=== PATIENT | male | born 1995 | race Two or more races ===

== ENCOUNTER 2024-09-26 07:51 | Emergency (ER) | payer OTHER, SELFPAY ==
--- OUTSIDE RECORDS SUMMARY | 2024-09-26 07:52 | XMS_ITS | Clinical Summary ---
Author Organization [employer] [facility] Address [address] [place] [address] Care Team Providers Care Enterprise Systems Manager Name Role Phone Pcp, No Primary Care Provider Unavailabl e Allergies No known active allergies Social History Tobacco Use Types Packs/Day Years Used Date Smoking Tobacco: Never Assessed Alcohol Use Standard Drinks/Week Comments Not Asked 0 (1 standard drink = 0.6 oz pur e alcohol) little Sex and Gender Information Value Date Recorded Sex Assigned at Male 06/17/2023 9:31 AM REHABILITATION SUPERVISOR Legal Sex Male 9:23 AM REHABILITATION SUPERVISOR Gender Identity Not on file Sexual Orientation Not on file Obstetrics History Last Filed Vital Signs Vital Sign Reading Time Taken Comments Blood Pressure 126/81 06/21/2023 1:05 PM REHABILITATION SUPERVISOR Pulse 90 06/21/2023 1:05 PM REHABILITATION SUPERVISOR Temperature 36.8 C (98.3 F) 06/21/2023 1:05 PM REHABILITATION SUPERVISOR Respiratory Rate - - Oxygen Saturation 97% 06/21/2023 1:05 PM REHABILITATION SUPERVISOR Inhaled Oxygen Concentration - - Weight 75.3 kg (166 lb) 06/21/2023 1:05 PM REHABILITATION SUPERVISOR Height - - Body Mass Index - - Plan of Treatment Health Maintenance Due Date Last Done Comments Tdap 2005 Depression screening for age 12+ 2006 BMI (ht and wt on same day) for age 18+ 02/03/2012 Hepatitis C screening for ag e 18-79 02/03/2012 Tetanus booster 2014 COVID-19 vaccine series ( season) 2024 Influenza Vaccine (#1) 2024 HIV for age 15-65 Completed 06/21/2023 Pneumococcal series for age 6-49 Aged Out No longer eligible based on patient's age to complete this topic Procedures Procedure Name Priority Date/Time Associated Diagnosis Comments ANTI HIV 1/2 Routine 06/21/2023 2:11 PM REHABILITATION SUPERVISOR Discharge from penis without blood Routine screening for STI (sexually transmitted infection) from Last 3 Months or Most Recently Relevant to Health Maintenance Results * ANTI HIV 1/2 (06/21/2023 2:11 PM REHABILITATION SUPERVISOR) HIV-1/HIV-2 SCREEN Non-Reacti ve Non-Reacti ve 06/21/2023 7:29 PM REHABILITATION SUPERVISOR [facility] Comment:HIV-1 p24 and HIV-1/ HIV-2 Ab Not Detected. Blood BLOOD SPECIMEN / Unknown Venipuncture / Unknown 06/21/2023 2:11 PM REHABILITATION SUPERVISOR 06/21/2023 2:14 PM REHABILITATION SUPERVISOR us Ariane Villarreal DO SEND OUTS Final Resul t [facility] [address] [place] [address], [place] from Last 3 Months or Most Recently Relevant to Health Maintenance Care Teams Enterprise Systems Manager Relationship Specialty Start Date End Date Pcp, No . PCP - General 07/08/24
--- OUTSIDE RECORDS SUMMARY | 2024-09-26 07:52 | XMS_ITS | Clinical Summary ---
Author Organization [facility] Address [address] [facility] [address] Care Team Providers Care Pattern Wheel Maker Name Role Phone No Ref-Primary, Physician Primary Care Provider Allergies No known active allergies Medications No known medications Immunizations Name Administration Dates Next Due TDAP Vaccine (Adacel) 04/16/2019 Social History Tobacco Use Types Packs/Day Years Used Date Smoking Tobacco: Never Assessed Adolescent Education Answer Date Record ed Getting School Help Needed Not on file 03/22 Sex and Gender Information Value Date Recorded Sex Assigned at Not on file Legal Sex Male 9:56 PM CDT Gender Identity Not on file Sexual Orientation Not on file Last Filed Vital Signs Vital Sign Reading Time Taken Comments Blood Pressure 132/83 12/19/2022 1:16 PM CDT Pulse 89 12/19/2022 1:16 PM CDT Temperature 36.7 C (98.1 F) 12/19/2022 1:16 PM CDT Respiratory Rate 18 12/19/2022 1:16 PM CDT Oxygen Saturation 98% 12/19/2022 1:16 PM CDT Inhaled Oxygen Concentration - - Weight - - Height 180 cm (5' 10.87) 04/16/2019 10:03 PM CD T Body Mass Index - - Plan of Treatment Health Maintenance Due Date Last Done Comments ADVANCE CARE PLANNING 1994 ANNUAL REVIEW OF HM ORDERS 1994 YEARLY PREVENTIVE VISIT 1997 HIV SCREENING 2009 HEPATITIS C SCREENING 02/03/2012 HEPATITIS B IMMUNIZATION (1 of 3 - 19+ 3-dose series) 2013 COVID-19 Vaccine ( season) 2024 05/06/2022, 07/10/2021, 11/16/2020, Additional history exists INFLUENZA VACCINE (#1) 2024 05/06/2022 PHQ-2 (once per calendar year) 2024 DTAP/TDAP/TD IMMUNIZATION (2 - Td or Tdap) 04/16/2029 04/16/2019 ZOSTER IMMUNIZATION (1 of 2) 02/03/2044 HPV IMMUNIZATION Aged Out No longer e ligible based on patient's age to complete this topic MENINGITIS IMMUNIZATION Aged Out No l onger eligible based on patient's age to complete this topic Pneumococcal Vaccine: Pediatrics (0 to 5 Years) and At-Risk Patients (6 to 49 Years) Aged Out No longer eligible based on patient's age to complete this topic 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
[2024-09-26 07:55] VITALS: BP 128/85; PULSE 84; RESP 16; TEMP 37.1; O2SAT 96; BMI 24.9
--- NOTE | 2024-09-26 08:24 | ED.GENADULT ---
HPI - General Adult General Chief complaint: Laceration/Wound Stated complaint: R hand laceration Time Seen by Provider: 09/26/24 07:58 Source: patient Mode of arrival: ambulatory Limitations: no limitations History of Present Illness HPI narrative: 29-year-old male presenting today with lacerations to both hands after his hand slipped well working on a car and grazed the screw that had come loose. He states that his tetanus shot was updated 2 years ago. Related Data Home Medications ?Medication ?Instructions ?Recorded ?Confirmed No Known Home Medications 09/26/24 09/26/24 Allergies Allergy/AdvReac Type Severity Reaction Status Date / Time No Known Drug Allergies Allergy Verified 09/26/24 08:02 Review of Systems Status of ROS: Reports: 6 or more systems reviewed and unremarkable except as noted in History and below Exam Narrative: Exam Narrative: Well-nourished well-developed patient in no acute distress. Alert and oriented. Answers questions appropriately. Mood and affect are appropriate. Thoughts are goal oriented and rational. No tangential or magical thinking noted. Patient speaks in full sentences without needing to catch his breath. HEENT: Normocephalic atraumatic. Pupils are equally round reactive to light. Extraocular muscles are intact. Conjunctivae are moist without any icterus noted. Moist mucous membranes. Extremities: Patient has approximately a 1 cm laceration just proximal to the 3rd knuckle on the volar surface of the hand on the right and a slightly smaller semi circular laceration just distal to the PIP on the pointer finger on left hand. Both lacerations go through the dermis into the subcutaneous tissue but do not penetrate through the subcutaneous tissue. Const: Vital Signs, click to edit/add: Vital Signs - 24 hr 09/26/24 07:55 Temperature 98.8 F Pulse Rate [Right Pulse Oximeter] 84 Respiratory Rate 16 Blood Pressure [Le ft Upper Arm] 128/85 Pulse Oximetry 96 Oxygen Delivery Me thod Room Air Course Course ED Course: Both lacerations were anesthetized with lidocaine and wounds were irrigated and cleaned. Wounds explored. Wound on the right hand was sutured with 4-0 Ethilon, 4 sutures were placed. Wound on the left hand was sutured with 4 0 Ethilon, 3 sutures were placed. Vital Signs Vital signs: Initial Vital Signs Temperature 98.8 F 09/26/24 07:55 Temperature Source Temporal Artery Scan 09/26/24 07:55 Pulse Rate 84 09/26/24 07:55 Respiratory Rate 16 09/26/24 07:55 Blood Pressure 128/85 09/26/24 07:55 Blood Pressure Mean 99 09/26/24 07:55 Blood Pressure Position Sitting 09/26/24 07:55 Pulse Oximetry 96 09/26/24 07:55 Oxygen Delivery Method Room Air 09/26/24 07:55 Vital Signs Temperature 98.8 F 09/26/24 07:55 Pulse Rate 84 09/26/24 07:55 Respiratory Rate 16 09/26/24 07:55 Blood Pressure 128/85 09/26/24 07:55 Pulse Oximetry 96 09/26/24 07:55 Oxygen Delivery Method Room Air 09/26/24 07:55 Temperature 98.8 F 09/26/24 07:55 Pulse Rate 84 09/26/24 07:55 Respiratory Rate 16 09/26/24 07:55 Blood Pressure 128/85 09/26/24 07:55 Pulse Oximetry 96 09/26/24 07:55 Oxygen Delivery Method Room Air 09/26/24 07:55 Medical Decision Making MDM Narrative Medical decision making narrative: Lacerations treated per above. Discharge Plan Discharge Clinical Impression: Laceration Patient Disposition: Home, Self-Care Condition: Improved Additional Instructions: Keep wound clean and dry. Do not soak such as taking baths, swimming or doing dishes. Follow-up in approximately 1 week for suture removal with your primary care provider. Watch for signs and symptoms of infection including increasing redness of the area, purulent drainage, or fever. If this occurs follow-up right away with your doctor or return to the ER. Prescriptions: No Action No Known Home Medications Follow Up/Referrals: Provider,Not a Local [Primary Care Provider] - Stand Alone Forms: [employer] Info Instructions
--- OUTSIDE RECORDS SUMMARY | 2024-09-26 08:32 | XMS_ITS | Clinical Summary ---
Author Organization [employer] [facility] Address [address] [place] [id number] Care Team Providers Care Passenger Service Supervisor Name Role Phone Pcp, No Primary Care Provider Unavailabl e Allergies No known active allergies Social History Tobacco Use Types Packs/Day Years Used Date Smoking Tobacco: Never Assessed Alcohol Use Standard Drinks/Week Comments Not Asked 0 (1 standard drink = 0.6 oz pur e alcohol) little Sex and Gender Information Value Date Recorded Sex Assigned at Male 06/17/2023 9:31 AM CVICU NURSE Legal Sex Male 9:23 AM CVICU NURSE Gender Identity Not on file Sexual Orientation Not on file Obstetrics History Last Filed Vital Signs Vital Sign Reading Time Taken Comments Blood Pressure 126/81 06/21/2023 1:05 PM CVICU NURSE Pulse 90 06/21/2023 1:05 PM CVICU NURSE Temperature 36.8 C (98.3 F) 06/21/2023 1:05 PM CVICU NURSE Respiratory Rate - - Oxygen Saturation 97% 06/21/2023 1:05 PM CVICU NURSE Inhaled Oxygen Concentration - - Weight 75.3 kg (166 lb) 06/21/2023 1:05 PM CVICU NURSE Height - - Body Mass Index - [...] ANTI HIV 1/2 Routine 06/21/2023 2:11 PM CVICU NURSE Discharge from penis without blood Routine screening for STI (sexually transmitted infection) from Last 3 Months or Most Recently Relevant to Health Maintenance Results * ANTI HIV 1/2 (06/21/2023 2:11 PM CVICU NURSE) HIV-1/HIV-2 SCREEN Non-Reacti ve Non-Reacti ve 06/21/2023 7:29 PM CVICU NURSE [facility] Comment:HIV-1 p24 and HIV-1/ HIV-2 Ab Not Detected. Blood BLOOD SPECIMEN / Unknown Venipuncture / Unknown 06/21/2023 2:11 PM CVICU NURSE 06/21/2023 2:14 PM CVICU NURSE us Ariane Villarreal DO SEND OUTS Final Resul t [facility] [address] [place] [address], [place] from Last 3 Months or Most Recently Relevant to Health Maintenance Care Teams Passenger Service Supervisor Relationship Specialty Start Date End Date Pcp, No . PCP - General 07/08/24
== END 2024-09-26 08:45 | disposition home or self-care (01) ==
LOC: ED 08:31
PROVIDERS: Emergency Provider Family Medicine
DX: S61.412A Laceration without foreign body of left hand, initial encounter (principal); S61.411A Laceration without foreign body of right hand, initial encounter; W31.9XXA Contact with unspecified machinery, initial encounter
CPT/HCPCS: 12001; 99283; 99284

== ENCOUNTER 2025-02-20 16:58 | Emergency (ER) | payer OTHER, SELFPAY ==
--- OUTSIDE RECORDS SUMMARY | 2025-02-20 16:59 | XMS_ITS | Clinical Summary ---
Author Organization [employer] [facility] Address [address] [place] [id number] Care Team Providers Care Salesperson Women'S Hats Name Role Phone Pcp, No Primary Care Provider Unavailabl e Allergies No known active allergies Social History Tobacco Use Types Packs/Day Years Used Date Smoking Tobacco: Never Assessed Alcohol Use Standard Drinks/Week Comments Not Asked 0 (1 standard drink = 0.6 oz pur e alcohol) little Sex and Gender Information Value Date Recorded Sex Assigned at Male 06/17/2023 9:31 AM FEEDER ASSOCIATE Legal Sex Male 9:23 AM FEEDER ASSOCIATE Gender Identity Not on file Sexual Orientation Not on file Obstetrics History Last Filed Vital Signs Vital Sign Reading Time Taken Comments Blood Pressure 126/81 06/21/2023 1:05 PM FEEDER ASSOCIATE Pulse 90 06/21/2023 1:05 PM FEEDER ASSOCIATE Temperature 36.8 C (98.3 F) 06/21/2023 1:05 PM FEEDER ASSOCIATE Respiratory Rate - - Oxygen Saturation 97% 06/21/2023 1:05 PM FEEDER ASSOCIATE Inhaled Oxygen Concentration - - Weight 75.3 kg (166 lb) 06/21/2023 1:05 PM FEEDER ASSOCIATE Height - - Body Mass Index - - Plan of Treatment Health Maintenance Due Date Last Done Comments Tetanus booster 2005 Depression screening for age 12+ 2006 BMI (ht and wt on same day) for age 18+ 02/03/2012 Hepatitis C screening for ag e 18-79 02/03/2012 Hepatitis B series for 19+ ( 1 of 3 - 19+ 3-dose series) 2013 COVID-19 vaccine series (2023- season) 2024 Influenza Vaccine (#1) 2025 HIV for age 15-65 Completed 06/21/2023 Pneumococcal series for age 6-49 Aged Out No longer eligible based on patient's age to complete this topic Procedures Procedure Name Priority Date/Time Associated Diagnosis Comments ANTI HIV 1/2 Routine 06/21/2023 2:11 PM FEEDER ASSOCIATE Discharge from penis without blood Routine screening for STI (sexually transmitted infection) from Last 3 Months or Most Recently Relevant to Health Maintenance Results * ANTI HIV 1/2 (06/21/2023 2:11 PM FEEDER ASSOCIATE) HIV-1/HIV-2 SCREEN Non-Reacti ve Non-Reacti ve 06/21/2023 7:29 PM FEEDER ASSOCIATE [facility] [address] [facility] Comment:HIV-1 p24 and HIV-1/ HIV-2 Ab Not Detected. Blood BLOOD SPECIMEN / Unknown Venipuncture / Unknown 06/21/2023 2:11 PM FEEDER ASSOCIATE 06/21/2023 2:14 PM FEEDER ASSOCIATE us Ariane Villarreal DO SEND OUTS Final Resul t [facility] [address] [place] [address], [place] from Last 3 Months or Most Recently Relevant to Health Maintenance Care Teams Salesperson Women'S Hats Relationship Specialty Start Date End Date Pcp, No . PCP - General 07/08/24
[2025-02-20 17:17] VITALS: BP 136/87; PULSE 87; RESP 18; TEMP 37; O2SAT 98; BMI 25.7
--- NOTE | 2025-02-20 17:28 | ED.GENADULT ---
HPI - General Adult General Chief complaint: Laceration/Wound Stated complaint: r hand lac Time Seen by Provider: 02/20/25 17:01 Source: patient Mode of arrival: ambulatory Limitations: no limitations History of Present Illness HPI narrative: 30-year-old male presenting with a laceration to the right pointer finger. Patient was putting another hole in his belt with a utility knife, utility knife slipped and sliced the tip of his finger. States his last tetanus shot was approximately 2 years ago. Denies other injuries. Related Data Home Medications ?Medication ?Instructions ?Recorded ?Confirmed No Known Home Medications 09/26/24 02/20/25 Allergies Allergy/AdvReac Type Severity Reaction Status Date / Time No Known Drug Allergies Allergy Verified 02/20/25 17:16 Review of Systems Status of ROS: Reports: 6 or more systems reviewed and unremarkable except as noted in History and below Exam Narrative: Exam Narrative: V-shaped laceration on the lateral surface of the tip of the pointer finger just lateral to the nail bed. Laceration extends into the subcutaneous tissue but does not penetrate through the subcutaneous tissue. Full range of motion of all fingers. Const: Vital Signs, click to edit/add: Vital Signs - 24 hr 02/20/25 17:17 Temperature 98.6 F Pulse Rate [Pulse Oximeter] 87 Respiratory Rate 18 Blood Pressure [Ri ght Upper Arm] 136/87 Pulse Oximetry 98 Oxygen Delivery Me thod Room Air Course Course ED Course: Digital block was done with 1% lidocaine. Wound was cleaned and irrigated. Seven sutures placed with 4-0 Ethilon. Vital Signs Vital signs: Initial Vital Signs Temperature 98.6 F 02/20/25 17:17 Temperature Source Temporal Artery Scan 02/20/25 17:17 Pulse Rate 87 02/20/25 17:17 Respiratory Rate 18 02/20/25 17:17 Blood Pressure 136/87 02/20/25 17:17 Blood Pressure Mean 103 02/20/25 17:17 Pulse Oximetry 98 02/20/25 17:17 Oxygen Delivery Method Room Air 02/20/25 17:17 Vital Signs Temperature 98.6 F 02/20/25 17:17 Pulse Rate 87 02/20/25 17:17 Respiratory Rate 18 02/20/25 17:17 Blood Pressure 136/87 02/20/25 17:17 Pulse Oximetry 98 02/20/25 17:17 Oxygen Delivery Method Room Air 02/20/25 17:17 Temperature 98.6 F 02/20/25 17:17 Pulse Rate 87 02/20/25 17:17 Respiratory Rate 18 02/20/25 17:17 Blood Pressure 136/87 02/20/25 17:17 Pulse Oximetry 98 02/20/25 17:17 Oxygen Delivery Method Room Air 02/20/25 17:17 Medical Decision Making MDM Narrative Medical decision making narrative: 30-year-old male with laceration to the pointer finger on the right. Sutured per above. Discharge Plan Discharge Clinical Impression: Laceration Patient Disposition: Home, Self-Care Condition: Improved Additional Instructions: Keep wound clean and dry. Do not soak such as taking baths, swimming or doing dishes. Follow-up in approximately 1 week for suture removal with your primary care provider. Watch for signs and symptoms of infection including increasing redness of the area, purulent drainage, or fever. If this occurs follow-up right away with your doctor or return to the ER. Prescriptions: No Action No Known Home Medications Follow Up/Referrals: Provider,Not a Local [Primary Care Provider, Family Practice] Stand Alone Forms: [employer] Info Instructions
== END 2025-02-20 18:03 | disposition home or self-care (01) ==
PROVIDERS: Emergency Provider Family Medicine
DX: S61.210A Laceration without foreign body of right index finger without damage to nail, initial encounter (principal); W26.9XXA Contact with unspecified sharp object(s), initial encounter
CPT/HCPCS: 12001; 99283; 99284